=== PATIENT | male | born 1995 | race Two or more races ===

== ENCOUNTER 2025-02-22 18:10 | Emergency (ER) | payer SELFPAY ==
[2025-02-22 19:18] VITALS: BP 111/70; PULSE 58; RESP 18; TEMP 36.6; O2SAT 99; BMI 20.1
--- NOTE | 2025-02-22 19:38 | PD.EDUPEX ---
Upper Extremity Injury RME/HPI General Chief Complaint: Extremity Injury, Upper Stated Complaint: left thumb is swollen Time Seen by Provider: 02/22/25 18:43 Arrival date/time: 02/22/25 18:10 RME / HPI RME / HPI narrative: 29-year-old male patient came in for evaluation regarding left thumb foreign body. Patient sustained thorn injury while working, about 1 week ago. Since then left thumb is slightly swollen. No fever no other complaints noted patient tetanus vaccination is unknown Related Data Previous Rx's ?Medication ?Instructions ?Recorded cephalexin 500 mg capsule 500 mg PO Q8H 7 days #21 caps 02/22/25 Allergies Allergy/AdvReac Type Severity Reaction Status Date / Time No Known Allergies Allergy Verified 02/22/25 18:15 Review of Systems Review of Systems Narrative Review of Systems: Review of system reviewed and within normal limits except mentioned in HPI ED Exam Narrative Physical exam: VITAL SIGNS: Reviewed. GENERAL APPEARANCE: Alert and interactive, follows commands, no acute distress, HEAD AND FACE: Non-traumatic. ENT: PERRL, pink conjunctivitis, eyelid no trauma, Mucous membrane moist. NECK: Supple, nontender, no nuchal rigidity. CHEST: No tenderness, no crepitus, no paradoxical movement, no retractions. LUNGS: Clear, well ventilated, symmetric, no rales, no wheezing, no ronchi, no stridor, good breath sounds bilaterally. HEART: Regular rate, regular rhythm, no murmur, no gallops. ABDOMEN: Soft, positive bowel sounds, nondistended, no guarding, nontender, no rebound, no masses, RECTAL: Deferred. GENITAL: Deferred. NEUROLOGICAL: Gross motor function intact sensory function intact, Appropriate for age. MUSCULOSKELETAL: low back nontender, full range of motion. EXTREMITIES: Left swelling, no redness. Tenderness palpable foreign body noted on the left thumb palmar aspect, full range of motion. SKIN: Color pink, dry, no rash, no lacerations, no abrasions, no contusions. LYMPHATICS: Deferred. Course Quality Measures none Orders Category Date Time Status TET,DIP/PERT AC (Adult)-Tdap [Boostrix Adult (Tdap) Med 02/22/25 19:38 Discontinued Vacc] 0.5 ml IMI .ONCE ONE cephALEXin [Keflex] Med 02/22/25 19:38 Discontinued 500 mg PO X1 ONE Vital Signs Vital signs: Vital Signs Temperature 97.9 F 02/22/25 19:18 Pulse Rate 58 L 02/22/25 19:18 Respiratory Rate 18 02/22/25 19:18 Blood Pressure 111/70 02/22/25 19:18 Pulse Oximetry (%) 99 02/22/25 19:18 Oxygen Delivery Method Room Air 02/22/25 19:18 Procedures -ED Foreign Body Removal Time Out Performed: yes Site: left and other (Thumb) Description of foreign body: other (thorn) Sedation/Analgesia: none Technique: manual removal and incision made to facilitate removal Confirmed by:: direct visualization Complications: none Post-procedure exam: awake, alert Neurovascular: normal distal pulse and normal capillary fill Extremity Injury MDM Narrative MDM Narrative:: 29-year-old male patient came in for evaluation regarding left thumb foreign body. Patient sustained thorn injury while working, about 1 week ago. Since then left thumb is slightly swollen. No fever no other complaints noted patient tetanus vaccination is unknown Patient received Keflex, and Boostrix. Removal of foreign body done by me see procedure notes Patient tolerated the procedure well Patient data External records reviewed:: None Clinical information provided by:: patient and family Social determinants that could affect healthcare access:: none Patient has the following chronic illnesses:: None How is presenting disease/condition affected by chronic disease/condition?: no chronic disease Evaluation data The following diagnostics were reviewed and interpreted by me:: other (specify) Lab and/or radiology exams considered but not ordered:: None none Interpretation Summary: None Medications / Prescriptions Medications or Prescriptions considered but not ordered:: None Medication administrations:: Medication Administration History Discontinued Medications Cephalexin HCl (Cephalexin 250 Mg Capsule) 500 mg PO X1 ONE Stop: 02/22/25 19:39 Diphtheria/Tetanus/Acell Pertussis (Diphth,Pertuss(Acell),Tet Vac 0.5 Ml Syr- Adult) 0.5 ml IMi .ONCE ONE Stop: 02/22/25 19:39 Boostrix and Keflex Consultations Consultation(s) initiated? (list below): No Diagnosis Upper Extremity Injury Differential Diagnosis: other (Foreign body thumb, cellulitis thumb,) Most likely diagnosis given after review of the tests above:: Foreign body thumb, status post removal Admission Indicated Admission indicated?: not indicated Admission Request Was there a request for admission?: No Disposition Plan Disposition Plan: Discharge Discharge Attestation Discharge Attestation: The patient and all family members were given an opportunity to ask questions and understood the discharge instructions. Discharge instructions specifically effects, indications for sooner follow up or return to the emergency department, and the expected course of current diagnosis. Patient condition: Stable Discharge Plan Plan Patient Disposition: HOME (Self Care) Disposition Comment: Stable Prescriptions/Referrals Prescriptions/Med Rec: New cephalexin 500 mg capsule 500 mg PO Q8H 7 Days Qty: 21 0RF Problem List Clinical Impression: Foreign body finger Patient/Caregiver Discharge Instructions Discharge Activity: activity as tolerated Education Materials: ED Foreign Body Soft Tissue Removed Additional Instructions: Thank you for the opportunity for serving you today. You are stable for discharged . You are advised to: Follow-up with your PCP in 1 to 2 days Return to ED for worsening of symptoms Increase oral fluids Take medication as prescribed For removal of sutures in 7 days Daily dressing with Neosporin Print Language: Finnish Stand Alone Forms: [employer] Award Info., Patient Portal Info Letter
[2025-02-22] MEDS: cephALEXin 250 MG CAPSULE 500 MG PO (20:05)
[2025-02-22] MEDS: DIPHTH,PERTUSS(ACELL),TET VAC 0.5 ML SYR- ADULT IMi (20:06)
== END 2025-02-22 22:05 | disposition home or self-care (01) ==
LOC: SERX 21:54
PROVIDERS: Emergency Provider Emergency Medicine
DX: S60.352A Superficial foreign body of left thumb, initial encounter (principal); X58.XXXA Exposure to other specified factors, initial encounter; Z23 Encounter for immunization
CPT/HCPCS: 10120; 90471; 90715; 99283; A9270